=== PATIENT | female | born 1965 | race Caucasian/White ===

== ENCOUNTER → 2018-01-08 | Outpatient (CLI) | payer MEDICARE, MEDICAID ==
[~2018-01-08] MED LIST: ATIVAN1 MG PO; DESYREL PO; HYDROXYZINE50 MG PO; LITHIUM CARBON300 MG PO; PROTONIX40 MG PO; TRANXENE3.75 MG PO; TRAZADONE HYDR100 MG PO; TRAZODONE150 MG PO; VENLAFAXINE37.5 MG PO; VISTARIL25 MG PO; ZOFRAN ODT4 MG SL
== END | disposition home or self-care (01) ==
LOC: MAMMO 10:51
DX: Z12.31 Encounter for screening mammogram for malignant neoplasm of breast (principal)

== ENCOUNTER 2022-01-07 11:03 | Emergency (ER) | payer OTHER, MEDICAID ==
[~2022-01-07] VITALS: Ht 162.5 cm; Wt 61.2 kg
[2022-01-07] MEDS ORDERED: Motrin,Rufen800 MG PO (16:24)
[2022-01-07] MEDS ORDERED: AMOXICILLIN500 M2 PO (16:24)
== END 2022-01-07 16:34 | disposition home or self-care (01) ==
LOC: ED 11:03
DX: K08.89 Other specified disorders of teeth and supporting structures (principal); Z88.8 Allergy status to other drugs, medicaments and biological substances

== ENCOUNTER 2023-01-10 07:13 | Emergency (ER) | payer OTHER, MEDICAID ==
[~2023-01-10] VITALS: Wt 65.8 kg
[~2023-01-10 07:13] MED LIST changes: +AMOXICILLIN500 M2 PO; +Motrin,Rufen800 MG PO
[2023-01-10] MEDS ORDERED: VENLAFAXINE HY150 M2 PO (07:38)
[2023-01-10] MEDS ORDERED: MELOXICAM15 MG PO (09:22)
[2023-01-10] MEDS ORDERED: CYCLOBENZAPRINE5 M3 PO (09:22)
== END 2023-01-10 09:47 | disposition home or self-care (01) ==
LOC: ED 07:13
DX: M54.41 Lumbago with sciatica, right side (principal); Z88.5 Allergy status to narcotic agent; Z79.899 Other long term (current) drug therapy

== ENCOUNTER 2023-08-26 11:18 | Emergency (ER) | payer OTHER, MEDICAID ==
[~2023-08-26] VITALS: Ht 162.5 cm; Wt 54.0 kg
[~2023-08-26 11:18] MED LIST changes: +CYCLOBENZAPRINE5 M3 PO; +MELOXICAM15 MG PO; +VENLAFAXINE HY150 M2 PO
== END 2023-08-26 16:30 | disposition left against medical advice (07) ==
LOC: ED 11:18
DX: R31.9 Hematuria, unspecified (principal); R11.0 Nausea; R22.2 Localized swelling, mass and lump, trunk; Z53.21 Procedure and treatment not carried out due to patient leaving prior to being seen by health care provider